=== PATIENT | male | born 1970 | race Caucasian/White ===

== ENCOUNTER 2017-02-01 14:21 | Inpatient (IN) ==
[2017-02-01 15:12] LABS: MANUAL DIFF NEEDED? NO
[2017-02-01 15:25] LABS: BASO% 1.5 % (0.0-0.8); EOS# 0.14 X1000 (0.0-0.7); EOS% 2.3 % (0.0-10.0); HEMATOCRIT 40.9 % (42.0-52.0); HEMOGLOBIN 13.6 g/dL (14.0-18.0); LYMPH# 3.26 X1000 (1.2-3.4); MCH 30.6 PG (27-31); MCHC 33.3 g/dL (33-37); MCV 92.1 FL (81-99); MONO# 0.86 X1000 (0.11-0.59); MONO% 14.2 % (1.7-9.3); MPV 9.6 FL (7.4-10.4); PLT 255 X1000 (130-400); RBC 4.44 XMIL (4.7-6.1)
--- NOTE | 2017-02-01 15:40 | Diag Imaging Result Doc PS360 ---
EXAM: MRI LUMBAR SPINE W/O CONTRAST HISTORY: new onset bilat leg weakness and numbness TECHNIQUE: Multiplanar, multisequence images were obtained of the lumbar spine without contrast as per standard protocol. COMPARISON: None. FINDINGS: There is diffuse decreased signal intensity throughout the bone marrow. Findings could represent red marrow persistence conversion. There are a few scattered T1 and T2 hyperintense foci throughout L4 and the sacrum consistent with benign fibrofatty lesions. Diffuse malignant cellular infiltration is considered less likely given the appearance but not completely excluded. Correlate clinically. The conus medullaris appears normal. The visualized portions of the abdominal aorta are of normal caliber. The visualized portions of the kidneys are unremarkable. L1/L2: No abnormalities are demonstrated. L2/L3: No abnormalities are demonstrated. L3/L4: No abnormalities are demonstrated. L4/L5: There is a central disc herniation producing moderate spinal stenosis and significant bilateral neural foraminal stenosis. L5/S1: There is a central disc herniation producing significant bilateral neural foraminal stenosis left greater than right and mild spinal stenosis. IMPRESSION: Central disc herniations at L4/L5 and L5/S1 producing bilateral neural foraminal stenosis and spinal stenosis. Indeterminate hypointense bone marrow signal intensity which could represent persistent hematopoietic marrow. Diffuse neoplastic cellular infiltration is not completely excluded. Correlate clinically. Electronically signed by Ivana Lorenzo 02/01/2017 3:37 PM
[2017-02-01 15:49] LABS: AGAP 9; ALBUMIN 3.9 g/dL (3.5-5.0); ALKALINE PHOSPHATASE 88 U/L (32-122); BUN 19 mg/dL (8-22); CALCIUM 9.5 mg/dL (8.8-10.2); CHLORIDE 100 mmol/L (98-107); COSMO 274; GOT 37 U/L (10-34); GPT 45 U/L (10-44); POTASSIUM 4.4 mmol/L (3.5-5.1); SODIUM 136 mmol/L (136-145); TCO2 27 mmol/L (25-35); TOTAL PROTEIN 7.4 g/dL (6.3-8.3)
[2017-02-01 15:57] LABS: FREE T4 0.46 ng/dL (0.93-1.70)
[2017-02-01 16:55] LABS: URINE MICRO REVIEW NEEDED? NO; URINE SOURCE VOIDED
[2017-02-01 16:56] LABS: SED RATE 33 mm/hr (0-15)
[2017-02-01 16:59] LABS: BILIRUBIN URINE NEGATIVE (NEGATIVE); BLOOD URINE NEGATIVE (NEGATIVE); COLOR YELLOW; GLUCOSE URINE NEGATIVE (NEGATIVE); LEUKOCYTES URINE NEGATIVE (NEGATIVE); NITRITE URINE NEGATIVE (NEGATIVE); PROTEIN URINE NEGATIVE (NEGATIVE); SP GRAVITY URINE 1.017; TURBIDITY URINE HAZY (CLEAR); UROBILINOGEN URINE 2 mg/dL (NORMAL)
[2017-02-01 17:01] LABS: UR EPITHELIAL CELLS <10 /HPF (<10); URINE BACTERIA NEGATIVE /HPF; URINE RBC <10 /HPF (<10); URINE WBC <10 /HPF (<10)
[2017-02-01] MEDS ORDERED: SYNTHROID IV ONE (17:03)
[2017-02-01] MEDS ORDERED: SODIUM CHLORIDE 0.9% INJ ONE (17:03)
[2017-02-01 17:15] LABS: UR AMPHETAMINES QUAL PRESUMPTIVE POSITIVE (NONE DETECT); UR BARBITUATES QUAL NONE DETECTED (NONE DETECT); UR BENZODIAZEPIN QUAL NONE DETECTED (NONE DETECT); UR CANNABINOIDS QUAL NONE DETECTED (NONE DETECT); UR COCAINE QUAL NONE DETECTED (NONE DETECT); UR METHADONE QUAL NONE DETECTED (NONE DETECT); UR OPIATES QUAL NONE DETECTED (NONE DETECT); UR OXYCODONE QUAL NONE DETECTED (NONE DETECT); UR PCP QUAL NONE DETECTED (NONE DETECT)
--- NOTE | 2017-02-01 17:42 | HISTORY AND PHYSICAL ---
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 He apparently was in [place] with some friends of his and he has been complaining his legs were weak and below the knees he was having a lot of leg cramps and they dropped him off at the rest station and called his girlfriend who came and picked him up. She lives in [place], [place] and she picked him up and brought him here to [facility]. His MRI of his spine, central disk herniations at L4-5 and L5-S1 producing bilateral neural foraminal stenosis, spinal stenosis, indeterminate hypointense bone marrow signal intensity which could represent persistent hematopoietic marrow. Diffuse neoplastic cellular infiltration is not completely excluded. PAST MEDICAL HISTORY: 1. He has had thyroidectomy and partial thyroidectomy at least and is supposed to be on thyroid supplement. He has not been taking. 2. Hypertension. 3. Possible diabetes mellitus. 4. Asthma. 5. Kidney stones in the past. 6. Degenerative joint disease of the lumbar spine. SURGERIES: He has had thyroidectomy in 2013, bilateral carpel tunnel. He has right knee meniscus tear repair. SOCIAL HISTORY: Girlfriend at bedside for 10 years. One pack smoker over the last 2 or 3 days. I think he quit for awhile but he smoked for about 10 years. Three cans of smokeless tobacco per week. No alcohol last 3 years. He uses crystal med IV, last use was 3 days ago. Right now he is homeless and his girlfriend lives in [place], [place]. FAMILY HISTORY: Grandmother with history of cancer. Main reason he came is weakness. He feels drowsy. The legs feel weak. He is having cramping in the lower legs. He did not offer any information of losing weight, fever or chills. HEENT: Did not report any specifics of dizziness or vertigo. Respiratory: No increased work of breathing or dyspnea. Cardiovascular: No chest pain or tachy palpitation. GI/: No reports of change in bowel habits or urinary frequency. Immunologic/hematologic: He is not sure if he might have diabetes. PHYSICAL EXAMINATION: VITAL SIGNS: Temperature 98.8 degrees, pulse 80, respirations 18, blood pressure 109/78. PUPILS: Equal, round. LUNGS: Clear in all lung montoya. CARDIOVASCULAR: Regular rate without murmur or S3. ABDOMEN: Soft, nontender, nondistended. Positive bowel sounds. No hepatosplenomegaly. EXTREMITIES: Without clubbing, cyanosis, or edema. Weight 186 pounds. Height 5 feet 8 inches. White blood cell count 6040, hematocrit 40, platelet count 255,000. Sodium 136, potassium 4.4, chloride 100, bicarb 27, BUN 19, creatinine 0.9. Blood sugar 100. Calcium 9.5, magnesium 2.0. AST was 37, ALT 45, alkaline phosphatase 88. A TSH was 24 and T4 was 0.46. Urinalysis unremarkable. Results of lumbar spine as above, central disk herniation L4-5, L5-S1, producing bilateral neural foraminal stenosis and spinal stenosis. ASSESSMENT AND PLAN: 1. He has got cramping in his legs. He is lethargic, profoundly hypothyroid and it is primary hypothyroid so we will supplement his thyroid. We will look at his cortisol level. We will give him some IV hydration and put him on a regular diet. We will check a magnesium level, actually it has been checked and is 2.0. Calcium looks good at 9.5, so we will check CPK to make sure it is not rhabdomyolysis. He does not show any sign of acidosis. 2. Severe degenerative joint disease in the lower lumbar sacral. He has no abnormalities down to L4. At L4-there is central disk herniation producing moderate spinal stenosis and significant bilateral neural foraminal stenosis. L5-S1 there is a central disk herniation producing significant bilateral neural foraminal stenosis left greater than the right. 3. For muscle cramps we will let them try some Robaxin 750 mg p.o. q.8 hours p.r.n. I will let him try some [place] for pain. We used the 7.5 mg p.o. q.6 hours p.r.n. and put him on a regular diet. 4. We will look and see and watch his blood sugar but he does not appear at this point to show up with diabetes mellitus. 5. History kidney stones. Aware. 6. Asthma. Aware. cc: Ricco Rocha MD
[2017-02-01] MEDS ORDERED: ZOFRAN IV PRN (19:58)
[2017-02-01] MEDS ORDERED: TYLENOL PO PRN (19:58)
[2017-02-01] MEDS ORDERED: ROBAXIN PO PRN (19:58)
[2017-02-01] MEDS: NS 1,000 ML IV SCH (20:30)
[2017-02-01] MEDS: NICODERM PATCH TD SCH (20:30)
[2017-02-02] MEDS: ATIVAN PO PRN ×3 (04:56→20:20)
[2017-02-02] MEDS: NORCO-7.5 PO PRN ×2 (04:56→13:25)
[2017-02-02 05:22] LABS: MANUAL DIFF NEEDED? NO
[2017-02-02 05:35] LABS: BASO% 1.4 % (0.0-0.8); EOS% 4.1 % (0.0-10.0); HEMATOCRIT 43.3 % (42.0-52.0); HEMOGLOBIN 14.2 g/dL (14.0-18.0); LYMPH% 55.2 % (20.5-51.1); MCH 30.4 PG (27-31); MCHC 32.8 g/dL (33-37); MCV 92.7 FL (81-99); MONO# 0.66 X1000 (0.11-0.59); MONO% 13.5 % (1.7-9.3); MPV 9.7 FL (7.4-10.4); NEUT% 25.8 % (42.2-75.2); PLT 248 X1000 (130-400); RBC 4.67 XMIL (4.7-6.1)
[2017-02-02 05:36] LABS: INR 0.97; PROTIME 10.2 Seconds (9.2-11.7); PTT 29.9 Seconds (22.0-36.0)
[2017-02-02 05:40] LABS: HEMOGLOBIN A1C 5.3 % (4.8-6.0)
[2017-02-02 05:44] LABS: AGAP 8; ALBUMIN 3.8 g/dL (3.5-5.0); ALKALINE PHOSPHATASE 83 U/L (32-122); BUN 17 mg/dL (8-22); CALCIUM 9.2 mg/dL (8.8-10.2); CHLORIDE 101 mmol/L (98-107); CK PROFILE 91 U/L (24-204); COSMO 278; GOT 38 U/L (10-34); GPT 46 U/L (10-44); SODIUM 138 mmol/L (136-145); TCO2 29 mmol/L (25-35); TOTAL PROTEIN 7.3 g/dL (6.3-8.3)
[2017-02-02] MEDS: SYNTHROID PO SCH (07:01)
[2017-02-02] MEDS: NICODERM PATCH TD SCH (08:41)
[2017-02-02] MEDS: PRILOSEC PO SCH (08:41)
[2017-02-02] MEDS: LOVENOX SUBQ SCH (08:41)
[2017-02-02] MEDS: NS 1,000 ML IV SCH ×2 (08:46→20:20)
--- NOTE | 2017-02-02 12:40 | PROGRESS NOTE ---
DATE: 02/02/2017 SUBJECTIVE: Resting comfortably, sleeping. OBJECTIVE: Vital Signs: He remains afebrile. Temperature is 98, pulse 60, respirations 20, and blood pressure 104/62. HEENT: Pupils are equal and round. Respiratory: Lungs are clear in all lung montoya. Cardiovascular: Regular rhythm and rate without murmur or S3. Abdomen: Soft. Skin: Warm and dry. Urine output of 500 mL. LABORATORY DATA: White count is 4,890, hematocrit 43, and platelet count 248,000. Chemistry is unremarkable. Of note, his TSH was 24 and free T4 was 0.46. ASSESSMENT AND PLAN: 1. Dehydration, profound, and primary hypothyroidism. Continue IV fluids. Encourage p.o. intake. He is on a regular diet. 2. Muscle cramping in the lower extremities, I think multifactorial degenerative disk disease and lumbar stenosis as well as in the face of hypothyroidism. Continue his Synthroid. We gave him 125 mcg IV yesterday and we will given him 150 mcg p.o. daily by mouth which is what he was on. He is status post thyroidectomy. cc: Ricco Rocha MD
[2017-02-03] MEDS: ATIVAN PO PRN (04:59)
[2017-02-03] MEDS: SYNTHROID PO SCH (06:42)
[2017-02-03] MEDS: NORCO-7.5 PO PRN (06:42)
[2017-02-03] MEDS: LOVENOX SUBQ SCH (08:13)
[2017-02-03] MEDS: PRILOSEC PO SCH (08:13)
[2017-02-03] MEDS: NICODERM PATCH TD SCH (08:13)
[2017-02-03 11:37] VITALS: BP 122/74
--- NOTE | 2017-02-03 12:53 | DISCHARGE SUMMARY ---
ADMISSION DATE: 02/01/2017 DISCHARGE DATE: 02/03/2017 SUBJECTIVE: This a 46-year-old who apparently uses IV crystal meth and he has not had any in a couple days apparently. He has history of lumbosacral stenosis, lumbosacral degenerative disease and apparently. He was working up in [place]. He lives in [place]. He was dropped off at the [facility] and girlfriend was called and she came to pick him up and got him to the hospital. His knees were weak and he could not really walk and had a lot of leg cramps. MRI of the spine was done. He has central disk herniations at L4-5-L5-S1 producing bilateral neuroforaminal stenosis, spinal stenosis, indeterminate hypodense bone marrow signal densities which could represent persistent hemopoietic marrow. PAST MEDICAL HISTORY: 1. He has had a thyroidectomy/partial thyroidectomy. 2. Hypertension. 3. Possible diabetes mellitus. 4. Asthma. 5. Kidney stones in the past. 6. Degenerative joint disease of lumbar spine. HOSPITAL COURSE: I noted that he was profoundly hypothyroid, primary hypothyroidism. I gave him a supplemental Synthroid and some IV fluids. I also gave him some Ativan to help with anxiety. He was very lethargic and slept for almost 24 hours and eventually woke up. He stated he was feeling better and wanted to try and go home so I discharged him on 02/03/2017. DISCHARGE MEDICATIONS: I will give him some Grandin 7.5, 1 q.6 hours. I gave him 40 of those. Synthroid 150 mcg p.o. daily and some Ativan 1 mg p.o. he could have q.6 hours p.r.n. I gave him 40 of those as well with no refills. I did give him a NicoDerm patch. FOLLOWUP: I told him it was imperative that he follow up with primary care in [place] and get followed from there. cc: Ricco Rocha MD
--- NOTE | 2017-02-04 06:23 | EKG Report ---
Test Performed on : 02/02/2017 06:27:53 AM Test Reason : chest pain Blood Pressure : / mmHG Vent. Rate : 061 BPM Atrial Rate : 061 BPM P-R Int : 140 ms QRS Dur : 092 ms QT Int : 434 ms P-R-T Axes : 032 056 055 degrees QTc Int : 436 ms Normal sinus rhythm. Normal ECG When compared with ECG of 01-FEB-2017 14:33, (Unconfirmed) No significant change was found Confirmed by Parker Tapia MD ([id number]) on 02/04/2017 10:17:15 AM
--- NOTE | 2017-02-04 07:02 | EKG Report ---
Test Performed on : 02/01/2017 2:33:18 PM Test Reason : NO ORDER Blood Pressure : / mmHG Vent. Rate : 069 BPM Atrial Rate : 069 BPM P-R Int : 138 ms QRS Dur : 092 ms QT Int : 394 ms P-R-T Axes : 034 051 043 degrees QTc Int : 422 ms Normal sinus rhythm. Normal ECG No previous ECGs available Unconfirmed Result
--- NOTE | 2017-02-14 16:27 | PROVIDER DOCUMENTATION ---
This chart was entered by Sepideh Schwartz Scribe, acting as scribe for Mohsen Locke MD. HPI-General Adult - General Chief Complaint: Syncope Stated Complaint: SYNCOPE Time Seen by Provider: 02/01/17 14:32 Source: patient Home Medications: Home Medication List Medication Instructions Recorded Confirmed Last Taken Type Levothyroxine [Synthroid] 150 microgm PO DAILY 02/01/17 02/01/17 11/26/16 History Hydrocodone/APAP 7.5 mg/325 mg 1 each PO Q6H PRN PRN #40 tablet 02/03/17 Unknown Rx [[place]-7.5] Levothyroxine [Synthroid] 150 microgm PO DAILY@0700 #30 02/03/17 Unknown Rx tablet Lorazepam [Ativan] 1 mg PO Q6H PRN PRN #40 tablet 02/03/17 Unknown Rx Nicotine Patch [Nicoderm Patch] 21 mg TD DAILY #14 patch.[id number] 02/03/17 Unknown Rx - History of Present Illness -Gen Adult Nature of Presenting Problems: 46 yo M presents to the ER with complaint of "blacking out recently", bilat foot numbness, and muscle spasms in legs x2 weeks. States they were driving today for about 4 hours and had to rack puller because of muscle spasms and " black outs". reports pt "nodding off" frequently, not actually syncopal events. Pt has a hx of IV drug use, states the last time he used was 3-4 days ago. Denies any loss of bowel/bladder control. States he has a hx of thyroidectomy but does not take medication. States last time he was hospitalized he was in renal failure, also had bradycardia and had to wear heart monitor but did not get any results from it. Onset/Duration: reports: other (2 weeks) Timing: reports: still present Review of Systems - Adult - REVIEW OF SYSTEMS - ADULT Constitutional: denies: chills, fever Eyes: reports: no symptoms reported Ears, Nose, Mouth & Throat: reports: no symptoms reported Cardiovascular: denies: chest pain, palpitations Respiratory: denies: cough, shortness of breath Gastrointestinal: denies: diarrhea, nausea, vomiting Genitourinary: reports: no symptoms reported Musculoskeletal: reports: muscle aches. denies: joint pain Integumentary: reports: no symptoms reported Neurological: reports: numbness. denies: syncope Psychiatric: reports: no symptoms reported Endocrine: reports: no symptoms reported Hematologic/Lymphatic: reports: no symptoms reported Allergic/Immunologic: reports: no symptoms reported All Other Systems: Reviewed and Negative Past History - Adult - PAST MEDICAL HISTORY-ADULT Review of Records: reports: Nursing Assessment Review, Medications Reviewed - IMMUNIZATION STATUS Childhood Immunizations: See Nurse Assessment Flu Vaccine: See Nurse Assessment Physical Exam-General - PHYSICAL EXAM-ADULT Initial Vital Signs Reviewed: Yes - CONSTITUTIONAL General Appearance: alert, no apparent distress - EYES Eyes: PERRL/EOMI, pink conjunctivae - HEAD, EARS, NOSE, MOUTH & THROAT HENMT: normocephalic/atraumatic, normal ENT inspection, TMs normal, pharynx normal - NECK Neck: supple, normal inspection - RESPIRATORY Respiratory: chest non-tender, lungs clear, no respiratory distress, no accessory muscle use - CARDIOVASCULAR Cardiovascular: normal peripheral pulses, regular rate, rhythm, no murmur - GASTROINTESTINAL (ABDOMEN) Abdominal Exam: normal bowel sounds, non tender, soft, no organomegaly, no pulsatile mass. negative: tenderness - MUSCULOSKELETAL Back Exam: normal inspection, no CVA tenderness, no vertebral tenderness Extremity: normal range of motion, non-tender, normal gait, normal inspection, normal capillary refill, other (no weakness noted, per pt harder to move R than L) - SKIN Integumentary: normal color, warm/dry, other ("tracks" to L AC) - NEUROLOGIC Neurologic: grossly normal, no motor/sensory deficits - PSYCHIATRIC Psych/Mental Status: normal mood/affect, normal thought content, normal thought process, oriented x 3 Progress - PLAN OF CARE/RESULTS Progress/Plan/Lab Results: Vital Signs - 8 hr 02/01/17 14:25 Temperature 98.8 F Pulse Rate 80 Respiratory Rate 18 Blood Pressure 109/78 O2 Sat by Pulse Oximetry 77 L Orders Category Date Time Status MRI LUMBAR SPINE W/O CONTRAST [MRI] Stat Exams 02/01/17 14:47 Ordered BLOOD CULTURE [BLDCUL] Stat Lab 02/01/17 14:49 Uncollected CBC WITH DIFF [HEME] Stat Lab 02/01/17 14:47 Uncollected COMPREHENSIVE METABOLIC PANEL [CHEM] Stat Lab 02/01/17 14:47 Uncollected D-DIMER [CHEM] Stat Lab 02/01/17 14:50 Uncollected FREE T4 Stat Lab 02/01/17 14:49 Uncollected MAGNESIUM [CHEM] Stat Lab 02/01/17 14:47 Uncollected SED RATE [HEME] Stat Lab 02/01/17 14:47 Uncollected TSH Stat Lab 02/01/17 14:50 Uncollected URINALYSIS-1 [URINALYSIS] Stat Lab 02/01/17 14:47 Uncollected URINE DRUG SCREEN Stat Lab 02/01/17 14:47 Uncollected EKG [EKG] Stat Ther 02/01/17 14:28 Ordered Result Diagrams: 02/02/17 04:43 02/02/17 04:43 - EKG 1 Time of EKG reading by physician:: 14:33 EKG Read and Signed by:: Mohsen Locke EKG Interpretation (*Must complete 3 of following elements*): Normal Rate: 69 Rhythm: normal sinus rhythm Boomer: normal QRS: normal [place] Interval: normal ST Wave: normal - CT/MRI 1 CT Study: Lumbar Spine Impression: See EMR Report (central disc herniations at L4/5 and L5/S1 producing bilateral neural foraminal stenosis and spinal stenosis. Indeterminate hypointense bone marrow signal intensity which could represent persistant hematopoietic marrow. Diffuse neoplastic cellular infiltrations is not completely excluded. Correlate clinically. Per radiologist) Departure - Departure Date of Disposition Decision: 02/01/17 Time of Disposition Decision: 14:00 DIAGNOSIS: Syncope, Hypothyroidism Disposition: ADMITTED INPATIENT 09 Certified Medical Emergency: Emergent Condition: Serious - Critical Care Note This patient required my direct & personal management of CC.: No This chart was documented by the indicated scribe, (Sepideh Schwartz Scribe) and accurately reflects the services I performed and decisions made by me, Mohsen Locke MD, as attested by the provider's signature.
== END 2017-02-03 14:54 | disposition home or self-care (01) ==
LOC: ED 14:21 → 3N 18:58 → 4N 19:14
PROVIDERS: ATTEND Emergency Medicine